=== PATIENT | female | born 1995 | race Caucasian/White ===

== ENCOUNTER 2017-12-06 10:23 | Emergency (ER) | payer OTHER ==
[2017-12-06 10:54] VITALS: Ht 157.5 cm
[2017-12-06 13:12] LABS: PLATELET COUNT 343 x10^3mcL (130-400)
[2017-12-06 13:13] LABS: BASOPHIL % 0.3 % (0-2)
[2017-12-06 13:53] VITALS: BP 127/73
== END 2017-12-06 13:53 | disposition home or self-care (01) ==
LOC: ED 10:23
PROVIDERS: Emergency Medicine
DX: N93.8 Other specified abnormal uterine and vaginal bleeding (principal)
CPT/HCPCS: 36415